=== PATIENT | female | born 1985 | race Caucasian/White ===

== ENCOUNTER → 2016-12-23 | Outpatient (REF) | LOC: LAB 14:56 | DX: Z01.89 Encounter for other specified special examinations (principal) ==

== ENCOUNTER → 2019-12-13 | Outpatient (CLI) | payer OTHER | LOC: LAB 11:52 | DX: Z20.828 Contact with and (suspected) exposure to other viral communicable diseases (principal) ==

== ENCOUNTER → 2021-02-19 | Outpatient (REF) | LOC: LAB 07:18 | DX: U07.1 COVID-19 (principal) ==